=== PATIENT | male | born 1985 | race Caucasian/White ===

== ENCOUNTER 2017-09-06 11:15 | Emergency (ER) | payer OTHER ==
[2017-09-06] MEDS ORDERED: LIDOCAINE 1% INJ-PF (10 MG/ML) 30 ML SDV INJ ONE (11:39)
[2017-09-06] MEDS ORDERED: ACETAMINOPHEN 325 MG TABLET PO ONE (11:40)
[2017-09-06] MEDS ORDERED: DIPH/PERTUSS(ACELL)/TETANUS VAC/PF 0.5 ML SYR (>=10YO) IM ONE (11:40)
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
[2017-09-06 13:58] VITALS: BP 129/88
== END 2017-09-06 13:57 | disposition home or self-care (01) ==
LOC: ER 11:15
PROC: 0HQ1XZZ Repair Face Skin, External Approach (ICD-10-PCS; principal; 2017-09-06)
DX: S01.111A Laceration without foreign body of right eyelid and periocular area, initial encounter (principal); S00.31XA Abrasion of nose, initial encounter; S20.312A Abrasion of left front wall of thorax, initial encounter; S00.03XA Contusion of scalp, initial encounter; S00.33XA Contusion of nose, initial encounter; S09.90XA Unspecified injury of head, initial encounter; R04.0 Epistaxis; J34.89 Other specified disorders of nose and nasal sinuses; M54.2 Cervicalgia; R68.84 Jaw pain; R51 Headache; R07.89 Other chest pain; Y09 Assault by unspecified means
CPT/HCPCS: 99284; 90471; 71101; 70450; 70486; 72125; 90715; 12011; J3490